=== PATIENT | male | born 1970 | race Caucasian/White ===

== ENCOUNTER 2020-04-30 12:43 | Emergency (ER) | payer OTHER ==
[2020-04-30 13:18] VITALS: BP 155/110
--- NOTE | 2020-04-30 13:22 | ER Document Report ---
HPI - HPI Patient complains to provider of: elevated blood pressure Time Seen by Provider: 04/30/20 13:01 Pain Level: Denies Notes: 49-year-old male [facility] with complaints of elevated blood pressure. He states he went to his appointment this morning they found his blood pressure to be in the 160s systolic. He states that he is on for blood pressure medicines. He usually takes them all at night. He states that he missed for the past 2 nights. He states he did take his medicines this morning. He states he is on 4 medicines. He takes losartan 100 mg, atenolol 50 mg, Norvasc 10 mg, hydralazine 10 mg. These are all once daily medicines. He denies any symptoms today. He denies chest pain, shortness of breath, headache, extremity weakness, difficulty speaking, dizziness, lightheadedness, back pain, abdominal pain, nausea, or vomiting. - ROS Systems Reviewed and Negative: Yes All other systems reviewed and negative - CONSTITUTIONAL Constitutional: DENIES: Fever, Chills - EENT EENT: DENIES: Sore Throat, Ear Pain, Congestion - NEURO Neurology: DENIES: Headache, Weakness, Vision blurred, Dizzinesss / Vertigo - CARDIOVASCULAR Cardiovascular: DENIES: Chest pain - RESPIRATORY Respiratory: DENIES: Trouble Breathing, Coughing - GASTROINTESTINAL Gastrointestinal: DENIES: Abdominal Pain, Nausea, Patient vomiting, Diarrhea - MUSCULOSKELETAL Musculoskeletal: DENIES: Extremity pain, Back Pain, Swelling - DERM Skin Color: Normal Skin Problems: None Past Medical History - General Information source: Patient - Social History Smoking Status: Never Smoker Frequency of alcohol use: None Drug Abuse: None Family History: Hypertension Vertical Provider Document - CONSTITUTIONAL Agree With Documented VS: Yes Exam Limitations: No Limitations General Appearance: WD/WN, No Apparent Distress - HEENT HEENT: Atraumatic, Normocephalic, PERRLA Notes: TMs clear bilaterally - NECK Neck: Normal Inspection, Supple - RESPIRATORY Respiratory: Breath Sounds Normal, No Respiratory Distress. negative: Rales, Rhonchi, Wheezing - CARDIOVASCULAR Cardiovascular: Regular Rate, Regular Rhythm, No Murmur - GI/ABDOMEN Gastrointestinal: Abdomen Soft, Abdomen Non-Tender, No Organomegaly - BACK Back: Normal Inspection - MUSCULOSKELETAL/EXTREMETIES Musculoskeletal/Extremeties: MAEW, FROM, Non-Tender - NEURO Level of Consciousness: Awake, Alert, Appropriate Notes: Cranial nerves II through XII are intact. There is no nystagmus. There is no dysarthria. There is no pronator drift. Normal [id number] bilaterally. There is no little leg drift. Normal [id number] bilaterally. Patient can ambulate into the room without any difficulty. He is alert and oriented x3. - DERM Integumentary: Warm, Dry, No Rash Course - Re-evaluation Re-evalutation: 04/30/20 Impression: Elevated blood pressure, medicine noncompliance. Patient did not take his blood pressure for 2 days and took his blood pressure pills about an hour before he is seen today's clinic. Today initially he had a blood pressure of 186/112. However, after monitoring he went down to 150/100. We have discussed his blood pressure medicine and the importance of taking them daily. I do however think that he would be better served for better all over blood pressure control by splitting his medicines and taking some in the morning and some in the evening. I have also advised that he could take an extra dose of hydralazine to help flank. He is supposed to see his primary care doctor in 2 days. I encouraged him to keep that without fail. He is to return here for any headache, chest pain, shortness of breath, nausea, vomiting, dizziness, passing out or any other concerning symptoms. He agrees with the plan. Do not think the patient requires any further work-up. - Vital Signs Vital signs: Temp Pulse Resp BP Pulse Ox 99.0 F 78 18 155/110 H 98 04/30/20 12:51 04/30/20 12:51 04/30/20 12:51 04/30/20 13:17 04/30/20 12:51 Discharge - Discharge Clinical Impression: Hypertension Qualifiers: Hypertension type: essential hypertension Qualified Code(s): I10 - Essential (primary) hypertension Condition: Stable Disposition: HOME, SELF-CARE Instructions: High Blood Pressure ([facility]) Additional Instructions: Please take your medicine every day as prescribed. Missing doses of your medicine will increase your blood pressure. You may have better coverage if you split your doses of medicines. You can take your atenolol and amlodipine in the morning and your losartan and hydralazine in the evening. Please keep a blood pressure diary. Return to the emergency department immediately if you have high blood pressure plus symptoms such as chest pain, shortness of breath, weakness of any extremity, difficulty speaking, headache, passing out. Talk to your provider at the [facility] about adding an extra dose of hydralazine in the morning as well. Referrals: [facility] [Provider Group] - Follow up as needed (follow up in 2 days with your provider at the [facility])
== END 2020-04-30 13:26 | disposition home or self-care (01) ==
LOC: ER 12:43
DX: I10 Essential (primary) hypertension (principal)
CPT/HCPCS: 99283